=== PATIENT | female | born 1965 | race American Indian/Alaskan Native ===

== ENCOUNTER 2018-07-31 08:37 | Emergency (ER) | payer MEDICAID ==
--- NOTE | 2018-07-31 10:35 | Emergency Department Report ---
HPI - General Chief Complaint: Upper Respiratory Infection Time Seen by Provider: 07/31/18 10:04 - HPI HPI: 52-year-old -Pak[place] female presents to the emergency department with a complaint of some chronic chest pain. Patient says that she has middle to right sided chest discomfort that occurs when the patient ever sneezes or coughs. She also says that when she is laying flat she "feels like something is moving in there." The patient says that she had a full cardiac workup back in March as an evaluation of this chest pain that included a negative stress test. She cannot remember the name of the doctor or group but it does appear to be either [facility] or [facility] as it is "around here on [address] Patient says that she will occasionally take some Tylenol for her discomfort. She says that she used to have a history of hypertension but was told she no longer needed the blood pressure medications after the negative cardiac workup. No recent travel or sick contacts at home. ED Past Medical Hx - Social History Smoking Status: Never Smoker Substance Use Type: None ED Review of Systems ROS: Stated complaint: CHEST PAIN Other details as noted in HPI Comment: All other systems reviewed and negative Constitutional: denies: chills, fever Eyes: denies: eye pain, vision change ENT: denies: ear pain, throat pain Respiratory: denies: cough, shortness of breath Cardiovascular: chest pain. denies: palpitations Gastrointestinal: denies: nausea, vomiting Genitourinary: denies: dysuria, discharge Musculoskeletal: denies: back pain, arthralgia Skin: denies: rash, lesions Neurological: denies: headache, weakness Physical Exam - Physical Exam Vital Signs: Vital Signs 07/31/18 09:00 Temperature 98 F Pulse Rate 87 Respiratory 18 Rate Blood Pressure 203/97 [Right] O2 Sat by Pulse 98 Oximetry Physical Exam: GENERAL: The patient is well-developed well-nourished. HEENT: Normocephalic. Atraumatic. Patient has moist mucous membranes. EYES: Extraocular motions are intact. Pupils are equal and reactive to light bilaterally. NECK: Supple. Trachea is midline. CHEST/LUNGS: Clear to auscultation. There is no respiratory distress noted. HEART/CARDIOVASCULAR: Regular. There is no tachycardia. There is no obvious murmur. ABDOMEN: Abdomen is soft, nontender. Patient has normal bowel sounds. There is no abdominal distention. SKIN: Skin is warm and dry. NEURO: The patient is awake, alert, and oriented. The patient is cooperative. The patient has no focal neurologic deficits. The patient has normal speech. MUSCULOSKELETAL: There is no tenderness or deformity. There is no limitation range of motion. There is no evidence of acute injury. ED Course Vital Signs 07/31/18 09:00 Temperature 98 F Pulse Rate 87 Respiratory 18 Rate Blood Pressure 203/97 [Right] O2 Sat by Pulse 98 Oximetry ED Medical Decision Making - Lab Data Result diagrams: 07/31/18 Unknown 07/31/18 Unknown - EKG Data -: EKG Interpreted by Me EKG shows normal: sinus rhythm, axis, intervals, QRS complexes, ST-T waves Rate: normal - EKG Data When compared to previous EKG there are: no significant change Interpretation: unchanged when compared t - Radiology Data Radiology results: report reviewed, image reviewed interpreted by me: Chest x-ray does not show any pneumothorax, pleural effusion, pneumonia or obvious focal consolidation. CTA CHEST: HISTORY: chest pain. COMPARISON: none. TECHNIQUE: Helical CT in 1.25mm intervals following IV contrast. Pulmonary embolus protocol. Sagittal and coronal reformatted images. Rotational MIP images. FINDINGS: Contrast bolus is satisfactory. No pulmonary embolus is identified. Thyroid gland: Normal. Tracheobronchial tree: Normal. Esophagus: Normal. Heart: Normal. Pericardium: Normal. Mediastinum: Normal. Lung Reyes: Normal. Pleural Spaces: Normal. Musculoskeletal: Normal. IMPRESSION: No evidence for pulmonary embolus. Unremarkable CT chest with contrast. Transcribed By: TTR Dictated By: SHAE REED JR, MD Electronically Authenticated By: SHAE REED JR, MD Signed Date/Time: 07/31/18 1851 - Medical Decision Making Patient presents to the emergency department with some acute on chronic chest pain. She is on he had a cardiac workup a few months ago with a negative stress test. EKG done today is normal without ST elevation WA, ischemia or dysrhyt hmia. Labs have been unremarkable including CBC, metabolic panel, thyroid and troponin. Chest x-ray did not show any focal consolidation, pneumothorax, pneumonia, pleural effusions, or any other acute process. A CT angiography of the chest was done that did not show any pulmonary embolus, dissection, aneurysm, or any acute process. The patient appears very safe for discharge home and has been instructed to follow-up with her primary care physician. She will return to the ER with any worsening of her symptoms or any acute distress. - Differential Diagnosis costochondritis, GERD, esophagitis, WA, PE Critical Care Time: No Critical care attestation.: If time is entered above; I have spent that time in minutes in the direct care of this critically ill patient, excluding procedure time. ED Disposition Clinical Impression: Intermittent chest pain, Atypical chest pain Disposition: TO HOME OR SELFCARE Is pt being admited?: No Condition: Stable Instructions: Chest Pain (ED) Additional Instructions: Please follow-up with your primary care physician. Return to the emergency Department with any worsening of your symptoms or any acute distress. Referrals: LUBNA CHRISTENSEN MD [Primary Care Provider] - 2-3 Days Time of Disposition: 15:07
--- NOTE | 2018-07-31 11:50 | XRay Report ---
CHEST TWO VIEWS: 07/31/18 08:37:00 CLINICAL: Chest pain. COMPARISON: None FINDINGS: Normal heart and pulmonary vasculature. The lungs are clear except for mild left lower lobe subsegmental atelectasis. No airspace disease or pleural effusion.The bones and soft tissues are normal. IMPRESSION: Mild left lower lobe subsegmental atelectasis. No CHF or pneumonia.
[2018-07-31 12:45] LABS: Hemoglobin 13.6 gm/dl (10.1-14.3); Mean Corpuscular HGB Conc 34 % (30-34); Mean Corpuscular Volume 94 fl (79-97); Platelet Count 311 K/mm3 (140-440); Red Blood Count 4.24 M/mm3 (3.65-5.03); Red Cell Distribution Width 14.1 % (13.2-15.2)
[2018-07-31 13:39] LABS: BUN/Creatinine Ratio 18; Blood Urea Nitrogen 7 mg/dL (7-17); Calcium 9.6 mg/dL (8.4-10.2); Hemolysis Index 21
[2018-07-31 13:53] LABS: Eosinophils % (Manual) 0 % (0.0-4.3); Monocytes % (Manual) 0 % (0.0-7.3); Total Cells Counted 100
[2018-07-31 13:54] LABS: Platelet Estimate Consistent w Auto; RBC Morphology Normal
--- NOTE | 2018-07-31 14:58 | Cat Scan Report ---
CTA CHEST: HISTORY: chest pain. COMPARISON: none. TECHNIQUE: Helical CT in 1.25mm intervals following IV contrast. Pulmonary embolus protocol. Sagittal and coronal reformatted images. Rotational MIP images. FINDINGS: Contrast bolus is satisfactory. No pulmonary embolus is identified. Thyroid gland: Normal. Tracheobronchial tree: Normal. Esophagus: Normal. Heart: Normal. Pericardium: Normal. Mediastinum: Normal. Lung Reyes: Normal. Pleural Spaces: Normal. Musculoskeletal: Normal. IMPRESSION: No evidence for pulmonary embolus. Unremarkable CT chest with contrast.
[2018-07-31 15:21] VITALS: BP 161/87
== END 2018-07-31 15:24 | disposition home or self-care (01) ==
LOC: ED 08:37
DX: R07.89 Other chest pain (principal)
CPT/HCPCS: 36415; 71046; 71275; 80048; 84443; 84484; 85007; 85025; 93005; 93010; 99284; Q9967

== ENCOUNTER 2020-08-17 19:53 | Emergency (ER) | payer MEDICAID ==
--- NOTE | 2020-08-17 20:06 | Emergency Department Report ---
ED Seizure HPI - General Chief Complaint: Seizure Stated Complaint: SEIZURE Time Seen by Provider: 08/17/20 19:58 Source: patient, EMS Mode of arrival: Stretcher Limitations: No Limitations - History of Present Illness Initial Comments: Patient is 54 years old female with no significant past medical history. Patient brought to the emergency room via EMS from home for evaluation of possible seizure. EMS stated that patient had a witnessed seizure-like activity. Witnessed by her son. Patient stated that she does not remember anything she found herself on the floor and everybody staring at her. Patient stated that she took her second dose of COVID-19 vaccine today. Patient denied any history of previous seizure. Patient denied any symptom at this moment. Patient is alert, oriented x3 no acute distress. MD Complaint: possible seizure -: Sudden, This evening Description of Episode: loss of consciousness, tonic-clonic movement, post-event confusion Witnessed:: Yes Trauma: No Place: home Possible Precipitating Event: none Associated Symptoms: denies other symptoms Treatments Prior to Arrival: none - Related Data Home Medications Medication Instructions Recorded Confirmed Last Taken No Known Home Medications [No 08/17/20 08/17/20 Unknown Reported Home Medications] Allergies Allergy/AdvReac Type Severity Reaction Status Date / Time No Known Allergies Allergy Unverified 07/31/18 08:40 ED Review of Systems ROS: Stated complaint: SEIZURE Other details as noted in HPI Comment: All other systems reviewed and negative Constitutional: denies: chills, fever Respiratory: denies: cough, shortness of breath Cardiovascular: denies: chest pain, palpitations Gastrointestinal: denies: abdominal pain, nausea, vomiting Musculoskeletal: denies: back pain Skin: denies: lesions Neurological: denies: headache, weakness ED Past Medical Hx - Past Medical History Previous Medical History?: No - Surgical History Additional Surgical History: c-sect, abd, fibroid removed - Social History Smoking Status: Former Smoker Substance Use Type: Alcohol - Medications Home Medications: Home Medications Medication Instructions Recorded Confirmed Last Taken Type No Known Home Medications [No 08/17/20 08/17/20 Unknown History Reported Home Medications] ED Physical Exam - General Limitations: No Limitations General appearance: alert, in no apparent distress - Head Head exam: Present: atraumatic, normocephalic, normal inspection - Eye Eye exam: Present: normal appearance - ENT ENT exam: Present: normal exam, normal orophraynx, mucous membranes moist - Neck Neck exam: Present: normal inspection, full ROM. Absent: tenderness, meningismus - Respiratory Respiratory exam: Present: normal lung sounds bilaterally - Cardiovascular Cardiovascular Exam: Present: regular rate, normal rhythm, normal heart sounds - GI/Abdominal GI/Abdominal exam: Present: soft, normal bowel sounds. Absent: distended, tenderness, guarding, rebound, rigid, organomegaly, mass, bruit, pulsatile mass, hernia - Extremities Exam Extremities exam: Present: normal inspection, full ROM, normal capillary refill. Absent: tenderness - Back Exam Back exam: Present: normal inspection, full ROM. Absent: CVA tenderness (R), CVA tenderness (L) - Neurological Exam Neurological exam: Present: alert, oriented X3, CN II-XII intact - Psychiatric Psychiatric exam: Present: normal mood - Skin Skin exam: Present: warm, intact, normal color ED Course Vital Signs 08/17/20 08/17/20 08/17/20 19:57 21:00 22:30 Temperature 98.4 F Pulse Rate 108 H 99 H 98 H Respiratory 18 16 16 Rate Blood Pressure 180/87 Blood Pressure 153/93 150/70 [Left] O2 Sat by Pulse 97 99 99 Oximetry ED Medical Decision Making - Lab Data Result diagrams: 08/17/20 20:13 08/17/20 22:08 - EKG Data -: EKG Interpreted by Me EKG shows normal: sinus rhythm Rate: tachycardia - EKG Data Interpretation: no acute changes - Radiology Data Radiology results: report reviewed - Medical Decision Making Patient is 54 years old female with no significant past medical history. Patient brought to the emergency room via EMS from home for evaluation of possible seizure. EMS stated that patient had a witnessed seizure-like activity. Witnessed by her son. Patient stated that she does not remember anything she found herself on the floor and everybody staring at her. Patient stated that she took her second dose of COVID-19 vaccine today. Patient denied any history of previous seizure. Patient denied any symptom at this moment. Patient is alert, oriented x3 no acute distress. Patient remained stable with stable vital signs. No seizure activity observed in the ER. Labs reviewed and is unremarkable. CT brain is negative for acute finding. Patient strongly advised to follow-up with her primary care physician for neurology referral. Patient also advised not to drive or operate heavy machinery. Patient advised to return to the ER if she develop any new symptoms. Critical care attestation.: If time is entered above; I have spent that time in minutes in the direct care of this critically ill patient, excluding procedure time. ED Disposition Clinical Impression: Witnessed seizure-like activity Disposition: DC-01 TO HOME OR SELFCARE Is pt being admited?: No Condition: Stable Instructions: Seizure, Adult, [id number] Referrals: PRIMARY CARE, [Primary Care Provider] - 3-5 Days
[2020-08-17 20:24] LABS: Basophils # (Auto) 0.1 K/mm3 (0.0-0.1); Basophils % (Auto) 0.7 % (0.0-1.8); Eosinophils # (Auto) 0.1 K/mm3 (0.0-0.4); Hematocrit 40.4 % (30.3-42.9); Lymphocytes # (Auto) 2.3 K/mm3 (1.2-5.4); Lymphocytes % (Auto) 28.3 % (13.4-35.0); Mean Corpuscular HGB Conc 35 % (30-34); Mean Corpuscular Volume 96 fl (79-97); Monocytes # (Auto) 0.5 K/mm3 (0.0-0.8); Monocytes % (Auto) 6.3 % (0.0-7.3); Platelet Count 273 K/mm3 (140-440); Red Blood Count 4.21 M/mm3 (3.65-5.03); Red Cell Distribution Width 13.7 % (13.2-15.2)
[2020-08-17 20:50] LABS: Alanine Aminotransferase 64 units/L (7-56); Albumin 4.6 g/dL (3.9-5); Blood Urea Nitrogen 8 mg/dL (7-17); Calcium 9.7 mg/dL (8.4-10.2); Hemolysis Index 426
[2020-08-17 20:54] LABS: BUN/Creatinine Ratio 11; Bilirubin,Direct < 0.2 mg/dL (0-0.2)
[2020-08-17 21:13] LABS: Bacteria,Urine 4+ /HPF (Negative); Bilirubin,Urine NEG (Negative); Blood,Urine NEG (Negative); Color,Urine Yellow (Yellow); Hyaline Casts,Urine 1 /LPF; Mucus,Urine 2+ /HPF; Urobilinogen,Urine < 2.0 mg/dL (<2.0)
--- NOTE | 2020-08-17 21:24 | Cat Scan Report ---
CT head/brain wo con INDICATION: NEW onset Seizure. TECHNIQUE: Routine CT head. All CT scans at this location are performed using CT dose reduction for A MARIA ESTHER by means of automated exposure control. COMPARISON: None. FINDINGS: Intracranial: Anderson-white matter differentiation is maintained. No intracranial hemorrhage. No extra a xial collection. No hydrocephalus. No herniation. Sinuses: Paranasal sinuses and mastoid air cells are essentially clear. Orbits: Globes are intact. Calvarium: No acute fracture. IMPRESSION: 1. No acute intracranial abnormality. Signer Name: Zachery Ramirez MD Signed: 08/17/2020 9:20 PM Workstation Name: [id number]
[2020-08-17 22:39] VITALS: BP 150/70
--- NOTE | 2020-08-17 23:20 | XRay Report ---
RIGHT SHOULDER RADIOGRAPH, 3 VIEWS INDICATION / CLINICAL INFORMATION: Right shoulder injury COMPARISON: None available. FINDINGS: BONES / JOINT(S): There is suggestion of mild cortical irregularity along the inferior margin of the glenoid. It is uncertain if this represents acute injury or sequela of degenerative change. Otherwise , no acute displaced fracture or dislocation identified. There is moderate acromioclavicular osteoart hritis, and a bony spur projects inferiorly from the acromion. SOFT TISSUES: No significant abnormality. ADDITIONAL FINDINGS: None. IMPRESSION: 1. Mild cortical irregularity along the inferior margin of the glenoid. It is uncertain if this repre sents acute injury or sequela of degenerative change. If there is ongoing clinical concern, a CT coul d be performed for further characterization. Signer Name: Amy March MD Signed: 08/17/2020 11:15 PM Workstation Name: [id number]
[2020-08-17] MEDS ORDERED: KETOROLAC 60 MG/2 ML INJ IM ONE (23:38)
--- NOTE | 2020-08-19 17:32 | Electrocardiograph Report ---
[facility] Test Date: 2020-08-17 Test Time: 20:10:09 Pat Name: TELLY JACOB Department: Room: Gender: F Body Masker: GARRET Carmichael : 1965 Requested By: BAILEY MALHOTRA Order Number: [id number] Reading MD: Pedro Pablo Goldman Measurements Intervals [place] Rate: 101 P: 56 [place]: 153 QRS: 35 QRSD: 75 T: 32 QT: 370 QTc: 479 Interpretive Statements Sinus tachycardia Probable left atrial enlargement No previous ECG available for comparison Electronically Signed On 08-19-2020 17:31:42 EDT by Pedro Pablo Goldman
== END 2020-08-18 00:15 | disposition home or self-care (01) ==
LOC: ED 19:53
DX: G40.909 Epilepsy, unspecified, not intractable, without status epilepticus (principal); Z87.891 Personal history of nicotine dependence; Z79.899 Other long term (current) drug therapy
CPT/HCPCS: 36415; 70450; 73030; 80048; 80076; 81001; 84132; 84484; 84703; 85025; 93005; 96372; 99285; J1885

== ENCOUNTER 2021-01-20 19:27 | Emergency (ER) | payer SELFPAY ==
[2021-01-20] MEDS ORDERED: levETIRAcetam 1000 MG/NS 0.75% 1,000 MG/100 ML BAG IV ONE (20:21)
[2021-01-20 20:56] LABS: Basophils % (Auto) 0.3 % (0.0-1.8); Eosinophils % (Auto) 0.5 % (0.0-4.3); Hematocrit 40.3 % (30.3-42.9); Hemoglobin 13.7 gm/dl (10.1-14.3); Lymphocytes # (Auto) 1.6 K/mm3 (1.2-5.4); Mean Corpuscular HGB Conc 34 % (30-34); Mean Corpuscular Volume 96 fl (79-97); Monocytes # (Auto) 0.4 K/mm3 (0.0-0.8); Monocytes % (Auto) 4.9 % (0.0-7.3); Platelet Count 321 K/mm3 (140-440); Red Blood Count 4.19 M/mm3 (3.65-5.03); Red Cell Distribution Width 13.7 % (13.2-15.2)
[2021-01-20 21:27] LABS: Blood Urea Nitrogen 8 mg/dL (7-17); Calcium 10.1 mg/dL (8.4-10.2); Hemolysis Index 2
[2021-01-20 21:28] LABS: BUN/Creatinine Ratio 16
[2021-01-20] MEDS ORDERED: HYDROcodone/ACETAMINOPHEN 5-325 MG TAB PO ONE (21:47)
[2021-01-20] MEDS ORDERED: IBUPROFEN 600 MG TAB PO ONE (21:48)
--- NOTE | 2021-01-20 22:45 | XRay Report ---
Left shoulder 3 views INDICATION: Left shoulder pain following injury IMPRESSION: No fracture or subluxation of the left shoulder is identified. Signer Name: Naveed Tian MD Signed: 01/20/2021 10:41 PM Workstation Name: [id number]
[2021-01-20 23:09] LABS: Bacteria,Urine 4+ /HPF (Negative); Bilirubin,Urine NEG (Negative); Blood,Urine SM (Negative); Color,Urine Yellow (Yellow); Mucus,Urine FEW /HPF; Protein,Urine <15 mg/dL mg/dL (Negative); Urobilinogen,Urine < 2.0 mg/dL (<2.0)
--- NOTE | 2021-01-20 23:32 | Emergency Department Report ---
ED Seizure HPI - General Chief Complaint: Seizure Stated Complaint: FAINTED/SEIZURE Time Seen by Provider: 01/20/21 20:20 Source: patient Mode of arrival: Ambulatory Limitations: No Limitations - History of Present Illness Initial Comments: Patient is a 55-year-old F [place] female who is presenting status post probable seizure. Patient states several months ago she was here for the same issue. Has no previous history of seizures. Patient's son heard a strange noise coming from her bedroom the patient was unconscious convulsing foaming at the mouth. Patient urinated on herself. When the patient came to she was already in the ambulance on her way to the hospital. Patient was not started on seizure medications and has not seen neurology since that first episode. Patient states she does drink alcohol. States she is not recently stopped d rinking abruptly. Patient drinks approximately 3-4 drinks daily. Drink of choice is wine. Denies fevers chills cough cold congestion neck stiffness headache. Patient complaining of left shoulder pain with decreased range of motion secondary to pain. States this occurred after she woke up from this episode. Pain estimated 6 out of 10 in severity. - Related Data Previous Rx's Medication Instructions Recorded Last Taken Type Ketorolac [Toradol] 10 mg PO Q6H PRN #12 tablet 01/20/21 Unknown Rx methOCARBAMOL [Robaxin TAB] 500 mg PO Q6H PRN #14 tablet 01/20/21 Unknown Rx Allergies Allergy/AdvReac Type Severity Reaction Status Date / Time No Known Allergies Allergy Unverified 07/31/18 08:40 ED Review of Systems ROS: Stated complaint: FAINTED/SEIZURE Other details as noted in HPI Comment: All other systems reviewed and negative ED Past Medical Hx - Past Medical History Previous Medical History?: No - Surgical History Past Surgical History?: Yes Additional Surgical History: c-sect, abd, fibroid removed - Social History Smoking Status: Never Smoker - Medications Home Medications: Home Medications Medication Instructions Recorded Confirmed Last Taken Type Ketorolac [Toradol] 10 mg PO Q6H PRN #12 tablet 01/20/21 Unknown Rx methOCARBAMOL [Robaxin TAB] 500 mg PO Q6H PRN #14 tablet 01/20/21 Unknown Rx ED Physical Exam - General Limitations: No Limitations General appearance: alert, in no apparent distress - Head Head exam: Present: atraumatic, normocephalic - Eye Eye exam: Present: normal appearance, PERRL, EOMI - ENT ENT exam: Present: mucous membranes moist - Neck Neck exam: Present: normal inspection - Respiratory Respiratory exam: Present: normal lung sounds bilaterally. Absent: respiratory distress, wheezes, rales, rhonchi - Cardiovascular Cardiovascular Exam: Present: regular rate, normal rhythm, normal heart sounds. Absent: systolic murmur, diastolic murmur, rubs, gallop - GI/Abdominal GI/Abdominal exam: Present: soft, normal bowel sounds. Absent: distended, tenderness, guarding, rebound, rigid - Extremities Exam Extremities exam: Present: normal inspection - Expanded Upper Extremity Exam Left Shoulder Exam: Present: tenderness. Absent: full ROM, swelling - Back Exam Back exam: Present: normal inspection - Neurological Exam Neurological exam: Present: alert, oriented X3 - Psychiatric Psychiatric exam: Present: normal affect, normal mood - Skin Skin exam: Present: warm, dry, intact, normal color. Absent: rash ED Course Vital Signs 01/20/21 22:24 O2 Sat by Pulse 97 Oximetry ED Medical Decision Making - Lab Data Result diagrams: 01/20/21 20:36 01/20/21 20:36 Lab Results 01/20/21 01/20/21 01/20/21 Range/Units 20:36 20:36 22:56 WBC 8.0 (4.5-11.0) K/mm3 RBC 4.19 (3.65-5.03) M/mm3 Hgb 13.7 (10.1-14.3) gm/dl Hct 40.3 (30.3-42.9) % MCV 96 (79-97) fl MCH 33 H (28-32) pg MCHC 34 (30-34) % RDW 13.7 (13.2-15.2) % Plt Count 321 (140-440) K/mm3 Lymph % (Auto) 20.0 (13.4-35.0) % [place] % (Auto) 4.9 (0.0-7.3) % Eos % (Auto) 0.5 (0.0-4.3) % Baso % (Auto) 0.3 (0.0-1.8) % Lymph # (Auto) 1.6 (1.2-5.4) K/mm3 [place] # (Auto) 0.4 (0.0-0.8) K/mm3 Eos # (Auto) 0.0 (0.0-0.4) K/mm3 Baso # (Auto) 0.0 (0.0-0.1) K/mm3 Seg Neutrophils % 74.3 H (40.0-70.0) % Seg Neutrophils # 5.9 (1.8-7.7) K/mm3 Sodium 137 (137-145) mmol/L Potassium 4.1 (3.6-5.0) mmol/L Chloride 97.3 L (98-107) mmol/L Carbon Dioxide 23 (22-30) mmol/L Anion Gap 21 mmol/L BUN 8 (7-17) mg/dL Creatinine 0.5 L (0.6-1.2) mg/dL Estimated GFR > 60 ml/min BUN/Creatinine Ratio 16 % Glucose 126 H (65-100) mg/dL Calcium 10.1 (8.4-10.2) mg/dL Urine Color Yellow (Yellow) Urine Turbidity Clear (Clear) Urine pH 6.0 (5.0-7.0) Ur Specific [place] 1.009 (1.003-1.030) Urine Protein <15 mg/dl (Negative) mg/dL Urine Glucose (UA) Neg (Negative) mg/dL Urine Ketones Neg (Negative) mg/dL Urine Blood Sm (Negative) Urine Nitrite Neg (Negative) Urine Bilirubin Neg (Negative) Urine Urobilinogen < 2.0 (<2.0) mg/dL Ur Leukocyte Esterase Neg (Negative) Urine WBC (Auto) 1.0 (0.0-6.0) /HPF Urine RBC (Auto) 2.0 (0.0-6.0) /HPF U Epithel Cells (Auto) 1.0 (0-13.0) /HPF Urine Bacteria (Auto) 4+ (Negative) /HPF Urine Mucus Few /HPF - Radiology Data X-ray left shoulder shows no acute process - Medical Decision Making Patient is a 55-year-old F [place] female who is presenting status post what sounds like a classic tonic-clonic seizure. There was a postictal phase afterwards. She did urinate on herself. Patient loaded with Keppra since this was not her first episode of seizure. Versed the patient to follow-up with neurology. Patient is stable for discharge at this time. Critical care attestation.: If time is entered above; I have spent that time in minutes in the direct care of this critically ill patient, excluding procedure time. ED Disposition Clinical Impression: Seizure, Injury of left rotator cuff Disposition: HOME / SELF CARE / HOMELESS Is pt being admited?: No Does the pt Need Aspirin: No Condition: Stable Instructions: Seizure, Adult, Shoulder Sprain Referrals: UNRULY VALDES MD [Referring] - ABRAHAM (Neurology ) SIMEON OVALLES MD [Staff Physician] - 7-10 days (Orthopedics ) Time of Disposition: 23:37
[2021-01-21 00:07] VITALS: BP 160/89
== END 2021-01-21 00:06 | disposition home or self-care (01) ==
LOC: ED 19:27
DX: S46.002A Unspecified injury of muscle(s) and tendon(s) of the rotator cuff of left shoulder, initial encounter (principal); R56.9 Unspecified convulsions; Z98.890 Other specified postprocedural states; Z79.899 Other long term (current) drug therapy; X58.XXXA Exposure to other specified factors, initial encounter; Y93.89 Activity, other specified; Y92.89 Other specified places as the place of occurrence of the external cause; Y99.8 Other external cause status
CPT/HCPCS: 36415; 73030; 80048; 81001; 85025; 96374; 99284; J1953